=== PATIENT | female | born 1955 | race African-American/Black ===

== ENCOUNTER 2019-11-22 13:16 | Emergency (ER) | payer MEDICAID ==
[~2019-11-22] VITALS: Ht 167.6 cm; Wt 81.6 kg
--- NOTE | 2019-11-22 13:19 | NUR ---
ED Nurse Note: PT BROUGHT IN BY RA 34 FROM [facility] DUE TO SOB. PT REPORTS HAVING COUGH FOR TE LAST SEVERAL DAYS.
[2019-11-22 13:25] VITALS: BP 130/80
--- NOTE | 2019-11-22 13:28 | Emergency Room Report ---
History of Present Illness General Chief Complaint: Dyspnea/Respdistress Source: EMS Present Illness HPI Disclaimer: Please note that this report is being documented using [employer] technology. This can lead to erroneous entry secondary to incorrect interpretation by the dictating instrument. HPI: 64-year-old female with history of non-oxygen dependent COPD presents for evaluation of cough and shortness of breath. Symptoms present approximate 2 days. She notes some chest congestion and increased nasal congestion and postnasal drip. Worsening shortness of breath today while she was at the grocery store. Called EMS for transfer to the emergency department which she states she usually gets a few breathing treatments and get put on steroids and after which she feels much better. Denies fevers, chills, myalgias, arthralgias , rash, chest pain, palpitations, vomiting, diarrhea or other symptoms at this time. PMH: COPD, hypertension PSH: Denies Allergies: Denies Social Hx: Current tobacco use, occasional alcohol use, denies drug use Allergies: Coded Allergies: No Known Allergies (Unverified , 11/22/19) Nursing Documentation-PMH Hx Hypertension: Yes Review of Systems All Other Systems: negative except mentioned in HPI Physical Exam Vital Signs Date Time Temp Pulse Resp B/P (MAP) Pulse Ox O2 Delivery O2 Flow Rate FiO2 11/22/19 13:12 98.4 79 18 155/78 (103) 95 Room Air General: Awake and alert, no acute distress HEENT: NC/AT. EOMI. Cardiovascular: RRR. S1 and S2 normal. No murmur appreciated Resp: Normal work of breathing. No cough. Chest is somewhat tight with faint expiratory wheezes. No crackles Abdomen: Abdomen is soft, nondistended. Nontender Skin: Intact. No abrasions, laceration or rash over the exposed skin MSK: Normal tone and bulk. Moving all extremities. No obvious deformity. Neuro: Awake and alert. Mentating appropriately. Medical Decision Making Diagnostic Impression: Primary Impression: COPD exacerbation ER Course 64-year-old female history of CAD presents for evaluation of shortness of breath and cough. Differential includes was not limited to bronchitis, pneumonia, COPD exacerbation, asthma exacerbation, pleurisy. Will obtain an x- ray to evaluate for possible pneumonia however at this time the patient is well- appearing no respiratory distress. She is a little bit tight and will be given steroids and breathing treatments in the emergency department. Do not believe she requires emergent labs or advanced imaging at this time but can advance work -up as needed. Chest X-Ray Diagnostic Results Chest X-Ray Diagnostic Results : Chest X-Ray Ordered: Yes # of Views/Limited/Complete: 1 View Indication: Shortness of Breath EP Interpretation: Yes Interpretation: no consolidation, no effusion, no pneumothorax, no acute cardiopulmonary disease Impression: No acute disease Electronically Signed by: Electronically signed by Dr. Marlon Puente Reevaluation Time: 15:47 Last Vital Signs Date Time Temp Pulse Resp B/P (MAP) Pulse Ox O2 Delivery O2 Flow Rate FiO2 11/22/19 13:12 98.4 79 18 155/78 (103) 95 Room Air Reevaluation Impression No evidence of pneumonia on chest x-ray. Patient be treated for COPD exacerbation with prednisone, refill of her albuterol and started on azithromycin. She can follow-up with her PMD next week for reevaluation. I encouraged her to get a flu shot after her symptoms are resolved. She understands and agrees with treatment plan as well as reasons to return to the emergency department. Will be discharged home. Disposition: HOME, SELF-CARE Condition: Improved Scripts Azithromycin* (ZITHROMAX*) 250 Mg Tablet 250 MG ORAL DAILY, #6 TAB 0 Refills Take two tables once daily for 1 day, then one tablet once daily for 4 days. Prov: Marlon Puente MD 11/22/19 Prednisone* (PREDNISONE*) 20 Mg Tablet 40 MG ORAL DAILY for 5 Days, #10 TAB Prov: Marlon Puente MD 11/22/19 Albuterol Sulfate* (ALBUTEROL SULFATE MDI*) 8.5 Gm Hfa.aer.ad 2 PUFF INH Q4H PRN for cough/wheezing, #1 EA 0 Refills Prov: Marlon Puente MD 11/22/19 Marlon Puente MD Nov 22, 2019 13:28
[2019-11-22] MEDS ORDERED: Solu-MEDROL 125mg Inj IVP ONE (13:30)
[2019-11-22] MEDS ORDERED: Solu-MEDROL 125mg Inj ONE (13:42)
[2019-11-22] MEDS: Albuterol/Ipratropium 3ml neb HHN SCH ×2 (14:36→14:37)
[2019-11-22] MEDS ORDERED: HYDROcodone/Acetamin 5/325 tab ORAL ONE (14:45)
--- NOTE | 2019-11-22 15:13 | Diagnostic Imaging Report ---
Indication: Cough Technique: One view of the chest Comparison: none Findings: Lungs and pleural spaces are clear. Heart size is normal. Impression: No acute process
[2019-11-22] MEDS ORDERED: PREDNISONE20 MG ORAL (15:41)
[2019-11-22] MEDS ORDERED: ALBUTEROL SULF8.5 GM INH (15:41)
[2019-11-22] MEDS ORDERED: ZITHROMAX250 MG ORAL (15:41)
[2019-11-22 16:00] VITALS: BP 128/80
--- NOTE | 2019-11-22 16:00 | NUR ---
ER DISCHARGE NOTE: Patient is cleared to be discharged per ERPA, pt is aox4, on room air, with stable vital signs. pt was given dc and prescription instructions, pt was able to verbalize understanding, pt id band and iv site removed without complications. pt is able to ambulate with steady gait. pt took all belongings.
== END 2019-11-22 16:00 | disposition home or self-care (01) ==
LOC: EDBD 13:16 → EMR 13:30
DX: J44.1 Chronic obstructive pulmonary disease with (acute) exacerbation (principal); I10 Essential (primary) hypertension
CPT/HCPCS: 71045; 96374; J2930; Z7502; 99284; J7620